=== PATIENT | male | born 2000 | race Caucasian/White ===

== ENCOUNTER 2019-09-20 00:40 | Emergency (ER) | payer SELFPAY ==
[~2019-09-20] VITALS: Ht 180.3 cm; Wt 79.4 kg
[2019-09-20 00:40] VITALS: Ht 180.3 cm; Wt 79.4 kg
[2019-09-20 01:12] LABS: BASOPHIL % 0.6 % (0-2); PLATELET COUNT 287 x10^3mcL (130-400); RED CELL DISTRIBUTION WIDTH 11.9 % (11.5-14.5)
[2019-09-20 02:16] VITALS: BP 127/77
== END 2019-09-20 02:16 | disposition short-term general hospital (02) ==
LOC: ED 00:40
PROVIDERS: Emergency Medicine
DX: S27.2XXA Traumatic hemopneumothorax, initial encounter (principal); S21.112A Laceration without foreign body of left front wall of thorax without penetration into thoracic cavity, initial encounter; S31.119A Laceration without foreign body of abdominal wall, unspecified quadrant without penetration into peritoneal cavity, initial encounter; Y28.8XXA Contact with other sharp object, undetermined intent, initial encounter; Y93.89 Activity, other specified; Y92.89 Other specified places as the place of occurrence of the external cause; Y99.0 Civilian activity done for income or pay
CPT/HCPCS: 32551; J2001; J2270; J2405; Q0092